=== PATIENT | male | born 1945 | race Two or more races ===

== ENCOUNTER → 2018-02-08 | Outpatient (CLI) | payer OTHER ==
[~2018-02-08] MED LIST: ZANTAC300 MG PO
== END | disposition home or self-care (01) ==
LOC: RAD 11:34
DX: M16.12 Unilateral primary osteoarthritis, left hip (principal); Z76.89 Persons encountering health services in other specified circumstances

== ENCOUNTER 2018-02-23 10:32 | Outpatient (CLI) | payer OTHER | END 2018-02-23 11:41 | disposition home or self-care (01) | LOC: NUCLEAR 10:32 | DX: I20.1 Angina pectoris with documented spasm (principal) | CPT/HCPCS: 78452; 93017; A9500; J0153 ==

== ENCOUNTER 2018-03-19 09:16 | Outpatient (CLI) | payer OTHER | END 2018-03-19 09:21 | disposition home or self-care (01) | LOC: LAB 09:16 | DX: D64.89 Other specified anemias (principal); E88.89 Other specified metabolic disorders; D68.8 Other specified coagulation defects; N39.0 Urinary tract infection, site not specified; A49.02 Methicillin resistant Staphylococcus aureus infection, unspecified site; I49.8 Other specified cardiac arrhythmias ==

== ENCOUNTER 2018-03-19 10:15 | Outpatient (CLI) | payer OTHER ==
[2018-03-28] MEDS ORDERED: PLAVIX75 MG PO (11:28)
[2018-03-28] MEDS ORDERED: VASOTEC10 MG PO (11:29)
[2018-03-28] MEDS ORDERED: ZOCOR20 MG PO (11:30)
[2018-03-28] MEDS ORDERED: COSAMIN ASU CA1 EAC1 PO (11:30)
[2018-03-28] MEDS ORDERED: ASA81 MG PO (11:30)
[2018-03-28] MEDS ORDERED: ADRENOID CAPSU1 EACH PO (11:30)
== END 2018-03-19 10:30 | disposition home or self-care (01) ==
LOC: RAD 501 10:15
DX: M16.12 Unilateral primary osteoarthritis, left hip (principal); M16.11 Unilateral primary osteoarthritis, right hip; Z01.810 Encounter for preprocedural cardiovascular examination

== ENCOUNTER 2018-04-02 07:23 | Inpatient (IN) | payer OTHER ==
[~2018-04-02] VITALS: Ht 182.9 cm; Wt 99.8 kg
[~2018-04-02 07:23] MED LIST changes: +ADRENOID CAPSU1 EACH PO; +ASA81 MG PO; +COSAMIN ASU CA1 EAC1 PO; +PLAVIX75 MG PO; +VASOTEC10 MG PO; +ZOCOR20 MG PO
== END 2018-04-05 16:58 | DRG 470 ==
LOC: SURH 04-03 08:05 → O/R 04-03 08:05 → SURH 04-03 10:08
PROVIDERS: Orthopaedic Surgery
PROC: 0SRB0JZ Replacement of Left Hip Joint with Synthetic Substitute, Open Approach (ICD-10-PCS; principal; 2018-04-03 12:15)
DX: M16.12 Unilateral primary osteoarthritis, left hip (principal); I10 Essential (primary) hypertension; I25.10 Atherosclerotic heart disease of native coronary artery without angina pectoris; Z98.61 Coronary angioplasty status; J31.0 Chronic rhinitis; J37.0 Chronic laryngitis; Z96.642 Presence of left artificial hip joint; J34.2 Deviated nasal septum

== ENCOUNTER → 2018-04-11 | Outpatient (CLI) | payer OTHER | END | disposition home or self-care (01) | LOC: NUCLEAR 13:39 | DX: M79.605 Pain in left leg (principal) ==

== ENCOUNTER 2018-10-19 13:09 | Outpatient (CLI) | payer OTHER | END 2018-10-19 13:17 | disposition home or self-care (01) | LOC: RAD 13:09 | DX: M54.5 Low back pain (principal); M25.561 Pain in right knee; M79.672 Pain in left foot; M79.671 Pain in right foot ==

== ENCOUNTER 2018-10-22 10:17 | Outpatient (CLI) | payer OTHER | END 2018-10-22 10:23 | disposition home or self-care (01) | LOC: SONOGRAMA 10:17 | DX: M12.271 Villonodular synovitis (pigmented), right ankle and foot (principal); M67.472 Ganglion, left ankle and foot ==

== ENCOUNTER 2019-03-28 08:50 | Outpatient (CLI) | payer OTHER | END 2019-03-28 08:56 | disposition home or self-care (01) | LOC: MRI 08:50 | DX: M79.671 Pain in right foot (principal); M85.471 Solitary bone cyst, right ankle and foot; M25.561 Pain in right knee; M17.11 Unilateral primary osteoarthritis, right knee | CPT/HCPCS: 73718 ==

== ENCOUNTER 2019-07-23 10:12 | Outpatient (CLI) | payer OTHER | END 2019-07-23 10:22 | disposition home or self-care (01) | LOC: RAD 10:12 → MAMO-SONO 10:15 → RAD 10:22 | DX: M25.552 Pain in left hip (principal); M79.652 Pain in left thigh; M25.562 Pain in left knee ==

== ENCOUNTER → 2019-08-02 08:43 | Outpatient (CLI) | payer OTHER | END | disposition home or self-care (01) | LOC: LAB 08:43 | DX: R79.89 Other specified abnormal findings of blood chemistry (principal) ==

== ENCOUNTER 2022-03-07 16:46 | Outpatient (CLI) | payer OTHER | END 2022-03-07 16:51 | disposition home or self-care (01) | LOC: RAD 16:46 | PROVIDERS: ATTEND Orthopaedic Surgery | DX: M25.561 Pain in right knee (principal) ==

== ENCOUNTER 2022-04-14 07:38 | Outpatient (CLI) | payer OTHER | END 2022-04-14 07:39 | disposition home or self-care (01) | LOC: NUCLEAR 07:38 | PROVIDERS: ATTEND Internal Medicine Cardiovascular Disease | DX: I20.1 Angina pectoris with documented spasm (principal); I10 Essential (primary) hypertension | CPT/HCPCS: 78452; 93017; A9500; J0153 ==

== ENCOUNTER 2023-08-08 10:21 | Outpatient (CLI) | payer OTHER | END 2023-08-08 10:26 | disposition home or self-care (01) | LOC: RAD 10:21 | PROVIDERS: ATTEND Orthopaedic Surgery | DX: M17.0 Bilateral primary osteoarthritis of knee (principal); M16.0 Bilateral primary osteoarthritis of hip; R93.6 Abnormal findings on diagnostic imaging of limbs ==

== ENCOUNTER 2024-08-08 10:45 | Outpatient (CLI) | payer OTHER | END 2024-08-08 10:50 | disposition home or self-care (01) | LOC: SONOGRAMA 10:45 | PROVIDERS: ATTEND Internal Medicine Cardiovascular Disease | DX: R10.9 Unspecified abdominal pain (principal); I10 Essential (primary) hypertension ==

== ENCOUNTER 2024-12-22 18:25 | Emergency (ER) | payer OTHER ==
[~2024-12-22] VITALS: Ht 182.9 cm; Wt 97.5 kg
[2024-12-22] MEDS ORDERED: KETOROLAC TROMETHAMINE 60 MG VIAL IM ONE ×2 (19:30→19:51)
[2024-12-22] MEDS ORDERED: TETRACAINE HCL 20 DR/ML DROPS OP ONE (19:30)
[2024-12-22] MEDS ORDERED: TETANUS & DIPHTHERIA TOX,ADULT 0.5 ML VIAL IM ONE (19:30)
[2024-12-22] MEDS ORDERED: CEFTRIAXONE SODIUM 1,000 MG VIAL IM ONE (19:30)
[2024-12-22] MEDS ORDERED: LIDOCAINE HCL 1% 10ML VIAL PERCUT ONE (19:30)
[2024-12-22] MEDS ORDERED: CEFTRIAXONE SODIUM 1,000 MG VIAL ONE (19:51)
[2024-12-22] MEDS ORDERED: DIPHTH,PERTUSS(ACELL),TET VAC 0.5 ML SYRINGE IM ONE (19:52)
[2024-12-22] MEDS ORDERED: MAXITROL EYE DRO5 ML OP (20:33)
[2024-12-22] MEDS ORDERED: CEFUROXIME500 MG PO (20:33)
[2024-12-22] MEDS ORDERED: PEPCID AC20 MG PO (20:33)
== END 2024-12-22 20:49 | disposition home or self-care (01) ==
LOC: ER 18:25
DX: S61.220A Laceration with foreign body of right index finger without damage to nail, initial encounter (principal); W45.8XXA Other foreign body or object entering through skin, initial encounter; Y93.89 Activity, other specified; Y92.89 Other specified places as the place of occurrence of the external cause; I25.10 Atherosclerotic heart disease of native coronary artery without angina pectoris
CPT/HCPCS: 12001; 73120; 90471; 90714; 96372; 99283; J0696; J1670; J1885

== ENCOUNTER 2025-01-01 10:31 | Emergency (ER) | payer OTHER ==
[~2025-01-01] VITALS: Ht 182.9 cm; Wt 97.5 kg
[~2025-01-01 10:31] MED LIST changes: +CEFUROXIME500 MG PO; +MAXITROL EYE DRO5 ML OP; +PEPCID AC20 MG PO
== END 2025-01-01 13:32 | disposition home or self-care (01) ==
LOC: ER 10:31
DX: Z48.02 Encounter for removal of sutures (principal); Z88.3 Allergy status to other anti-infective agents

== ENCOUNTER → 2025-04-24 | Outpatient (CLI) | payer OTHER | END | disposition home or self-care (01) | LOC: NUCLEAR 10:25 | PROVIDERS: ATTEND Internal Medicine Cardiovascular Disease | DX: R41.2 Retrograde amnesia (principal) | CPT/HCPCS: 78803; A9557 ==